=== PATIENT | female | born 1985 | race Caucasian/White ===

== ENCOUNTER 2017-07-27 12:39 | Emergency (ER) | payer OTHER ==
[2017-07-27 12:52] VITALS: BP 111/79; PULSE 98; TEMP 98; BMI 27.8
[2017-07-27] MEDS ORDERED: KETOROLAC TROMETHAMINE 60 MG/2 ML VIAL IM ONE (14:45)
[2017-07-27] MEDS ORDERED: diazePAM 5 MG TABLET PO ONE (14:45)
[2017-07-27] MEDS ORDERED: KETOROLAC TROMETHAMINE 60 MG/2 ML VIAL ONE (14:47)
[2017-07-27] MEDS ORDERED: diazePAM 5 MG TABLET ONE (14:47)
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
== END 2017-07-27 15:29 | disposition home or self-care (01) ==
LOC: JERFT 12:39
PROC: 3E0233Z Introduction of Anti-inflammatory into Muscle, Percutaneous Approach (ICD-10-PCS; principal; 2017-07-27)
DX: M54.5 Low back pain (principal)
CPT/HCPCS: 99281-25

== ENCOUNTER 2017-08-25 18:08 | Emergency (ER) | payer SELFPAY ==
[2017-08-25 18:33] VITALS: TEMP 98.2; BMI 28.6
--- NOTE | 2017-08-25 18:34 | PDOC ---
History of Present Illness - General Chief Complaint: Pain Stated Complaint: BACK/PELVIC PAIN Time Seen by Provider: 08/25/17 18:32 History Source: Patient Exam Limitations: No Limitations - History of Present Illness Travel History: No Initial Comments: 08/25/17 19:02 Patient came to emergency department with approximately 4 days of worsening pain to left low back which is now radiating across to left groin. States has some radiating pain through gluteus and down left leg. Denies any recent changes in exercise or activity, has no history of back pain or injury. Has had no fever, dysuria, bleeding in urine, or history of kidney stones. Hysterectomy performed 10 years ago for endometriosis. Has suffered in the past from ovarian cysts but states this pain is much different from that. Denies constipation and in fact states has been more regular recently that she has been in the past. Some mild nausea but no vomiting. Denies any significant generalized abdominal pain states pain is primarily left lower quadrant into the groin and around from back area taken no medication for relief of same. Timing/Duration: reports: getting worse Quality: reports: mild, moderate, severe Abdominal Pain Onset Location: reports: suprapubic, flank Pain Radiation: reports: flank, groin Activities at Onset: reports: none Alleviating Factors: improves with: None Past History - Travel Traveled outside of the country in the last 30 days: No Close contact w/someone who was outside of country & ill: No - Past Medical History Allergies/Adverse Reactions: Allergies Allergy/AdvReac Type Severity Reaction Status Date / Time shellfish derived Allergy Unknown Verified 08/25/17 18:16 Home Medications: Ambulatory Orders Oxycodone HCl/Acetaminophen [Percocet 5/325 -] 1 tab PO Q4H #14 tablet MDD 6 Prednisone [Deltasone -] 40 mg PO DAILY #10 tablet 08/25/17 Anemia: No Asthma: No Cancer: No Cardiac Disorders: No CVA: No COPD: No CHF: No DVT: No Dementia: No Diabetes: No GI Disorders: No Disorders: No HTN: No Hypercholesterolemia: No Liver Disease: No Seizures: No Thyroid Disease: No - Surgical History Abdominal Surgery: No Appendectomy: No Cardiac Surgery: No Cholecystectomy: No Lung Surgery: No Neurologic Surgery: No Orthopedic Surgery: No - Reproductive History Cervical CA: No Dysfunctional Uterine Bleeding: No Ectopic : No Endometrial CA: No Polycystic Ovaries: Yes Tubal Ligation: No Uterine Fibroids: Yes (removed) - Immunization History Immunization Up to Date: Yes - Suicide/Smoking/Psychosocial Hx Smoking Status: No Smoking History: Never smoked Have you smoked in the past 12 months: No Number of Cigarettes Smoked Daily: 0 Hx Alcohol Use: No Drug/Substance Use Hx: No Substance Use Type: None Hx Substance Use Treatment: No Review of Systems - Review of Systems Able to Perform ROS?: Yes Is the patient limited Sinhala proficient: Yes Constitutional: Yes: Symptoms Reported, See HPI, Loss of Appetite, Malaise. No : Fever HEENTM: Yes: See HPI. No: Symptoms Reported Respiratory: Yes: See HPI. No: Symptoms reported, Cough, Shortness of Breath, Wheezing ABD/GI: Yes: Symptoms Reported, Nausea, Poor Appetite, Poor Fluid Intake. No: Vomiting : Yes: Symptoms Reported, See HPI, Flank Pain. No: Burning, Dysuria, Discharge, Frequency, Hematuria Musculoskeletal: Yes: Symptoms Reported, See HPI, Back Pain Integumentary: No: Symptoms Reported All Other Systems: Reviewed and Negative *Physical Exam - Vital Signs Last Vital Signs Temp Pulse Resp BP Pulse Ox 98.2 F 77 18 131/69 100 08/25/17 18:16 08/25/17 18:16 08/25/17 18:16 08/25/17 18:16 08/25/17 18:16 - Physical Exam General Appearance: Yes: Nourished, Appropriately Dressed, Apparent Distress, Mild Distress, Moderate Distress HEENT: positive: JAYA, Normal ENT Inspection, TMs Normal, Pharynx Normal Neck: positive: Supple. negative: Tender Respiratory/Chest: positive: Lungs Clear, Normal Breath Sounds Cardiovascular: positive: Regular Rhythm Gastrointestinal/Abdominal: positive: Normal Bowel Sounds, Tender (mild suprapubic/ left groin pain, no rebound or guarding, no fullness, no hepatosplenomegaly.), Soft Musculoskeletal: positive: Normal Inspection, CVA Tenderness, CVA Tenderness (L) , Decreased Range of Motion. negative: Muscle Spasm, Vertebral Tenderness Extremity: positive: Normal Capillary Refill, Normal Inspection, Normal Range of Motion (no bone tenderness no spinal tenderness, crepitus or step-offs. 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 We will wait for urinalysis to return to rule out hematuria and order appropriate testing. Labs will be obtained, and given IV fluid bolus with Toradol for pain relief. 7: 00 shift change case was turned over to ANGELINA Cintron for remainder of evaluation and plan *DC/Admit/Observation/Transfer Diagnosis at time of Disposition: Sciatica Back pain Qualifiers: Back pain location: low back pain Chronicity: acute Back pain laterality: left Sciatica presence: unspecified whether sciatica present Qualified Code(s): M54.5 - Low back pain - Discharge Dispostion Disposition: HOME Condition at time of disposition: Stable - Prescriptions Prescriptions: Oxycodone HCl/Acetaminophen [Percocet 5/325 -] 1 tab PO Q4H #14 tablet MDD 6 Prednisone [Deltasone -] 40 mg PO DAILY #10 tablet - Referrals Referrals: Puma Buitrago MD [Staff Physician] - Frankie Garces MD [Primary Care Provider] - - Patient Instructions Printed Discharge Instructions: DI for Back Pain With Sciatica Additional Instructions: Your Discharge Instructions: You must call primary care physician within 24 hours to arrange follow-up. Return to the Emergency Department with any new, persistent or worsening symptoms, for fever, chills, SOB, dizziness or any other concerning changes that may occur. You must make an appointment with orthopedist within the next 1- 2 days. - Post Discharge Activity
[2017-08-25] MEDS ORDERED: KETOROLAC TROMETHAMINE 30 MG/1 ML VIAL ONE (18:55)
[2017-08-25] MEDS ORDERED: SODIUM CHLORIDE 1,000 ML IV STA (19:04)
[2017-08-25] MEDS ORDERED: KETOROLAC TROMETHAMINE 30 MG/1 ML VIAL IVPUSH ONE (19:05)
[2017-08-25 19:19] LABS: BASO # 0.1 # (0.1-1); BASO % 1.1 % (0-2.0); EOS # 0.2 # (0-4.5); EOS % 2.5 % (0-4.5); LYMPH # 2.9 (8-40); MCH 30.2 pg (25.7-33.7); MCHC 33.3 g/dl (32.0-36.0); MEAN CELL VOLUME 90.8 fl (80-96); MEAN PLT VOLUME 9.3 fl (7.5-11.1); MONO # 0.7 # (3.8-10.2); NEUT # 6.1 # (42.8-82.8); NEUT % 60.4 % (42.8-82.8); PLATELET COUNT 256 K/MM3 (134-434); RDW 13.1 % (11.6-15.6); WHITE BLOOD COUNT 10.1 K/mm3 (4.0-10.0)
[2017-08-25 19:45] LABS: ALBUMIN 3.5 g/dl (3.4-5.0); ANION GAP 5 (8-16); BILIRUBIN,TOTAL 0.8 mg/dL (0.2-1.0); CALCIUM 8.1 mg/dL (8.5-10.1); CO2 26 mmol/L (21-32); CREATININE 0.7 mg/dL (0.55-1.02); GLUCOSE,RANDOM 94 mg/dL (74-106); SGOT/AST 9 U/L (15-37); SGPT/ALT 16 U/L (12-78); TOT PROT 6.6 g/dl (6.4-8.2)
[2017-08-25 19:46] LABS: ALK PHOS 73 U/L (45-117)
[2017-08-25] MEDS ORDERED: morphine CARPU-JECT 4 MG/1 ML DISP.SYRIN IVPUSH ONE (20:26)
[2017-08-25] MEDS ORDERED: morphine CARPU-JECT 8 MG/1 ML DISP.SYRIN ONE (20:44)
[2017-08-25 21:51] LABS: URINE APPEARANCE CLEAR; URINE BILIRUBIN NEGATIVE (NEGATIVE); URINE BLOOD NEGATIVE (NEGATIVE); URINE COLOR LTYELLOW; URINE GLUCOSE (UA) NEGATIVE (NEGATIVE); URINE KETONE NEGATIVE (NEGATIVE); URINE LEUK ESTERASE NEGATIVE (NEGATIVE); URINE NITRITE NEGATIVE (NEGATIVE); URINE PROTEIN NEGATIVE (NEGATIVE); URINE UROBILINOGEN NEGATIVE mg/dL (0.2-1.0)
--- NOTE | 2017-08-25 22:06 | PDOC ---
*Physical Exam - Vital Signs Last Vital Signs Temp Pulse Resp BP Pulse Ox 98.2 F 73 17 111/72 100 08/25/17 18:16 08/25/17 19:16 08/25/17 19:16 08/25/17 19:16 08/25/17 19:16 ED Treatment Course - LABORATORY CBC & Chemistry Diagram: 08/25/17 19:00 08/25/17 19:00 - ADDITIONAL ORDERS Additional order review: Laboratory Results 08/25/17 08/25/17 19:00 18:40 Sodium 139 Potassium 4.3 Chloride 108 H Carbon Dioxide 26 Anion Gap 5 L BUN 16 D Creatinine 0.7 D Creat Clearance w eGFR > 60 Random Glucose 94 Calcium 8.1 L Total Bilirubin 0.8 AST 9 L D ALT 16 Alkaline Phosphatase 73 Total Protein 6.6 Albumin 3.5 Lipase 75 Urine Color Ltyellow Urine Appearance Clear Urine pH 6.0 Ur Specific [place] 1.020 Urine Protein Negative Urine Glucose (UA) Negative Urine Ketones Negative Urine Blood Negative Urine Nitrite Negative Urine Bilirubin Negative Urine Urobilinogen Negative Urine HCG, Qual Negative 08/25/17 19:00 RBC 4.27 MCV 90.8 MCHC 33.3 RDW 13.1 MPV 9.3 Neutrophils % 60.4 Lymphocytes % 29.0 Monocytes % 7.0 Eosinophils % 2.5 Basophils % 1.1 - Medications Given in the ED: ED Medications Discontinued Medications Generic Name Dose Route Start Last Admin Trade Name Freq PRN Reason Stop Dose Admin Sodium Chloride 1,000 mls @ 1,000 mls/hr 08/25/17 19:04 08/25/17 19:09 Normal Saline - IV 08/25/17 20:03 1,000 mls/hr ASDIR STA Administration Ketorolac Tromethamine 30 mg 08/25/17 19:05 08/25/17 19:09 Toradol Injection - IVPUSH 08/25/17 19:06 30 mg ONCE ONE Administration Morphine Sulfate 4 mg 08/25/17 20:26 08/25/17 20:52 Morphine Injection - IVPUSH 08/25/17 20:27 4 mg ONCE ONE Administration Medical Decision Making - Medical Decision Making 08/25/17 22:01 Patient was endored to me to follow the labs and disposition. Patient has lower back pain radiating to the groin, buttock and thigh x 4 days, no prior episode of this pain, but took motrin 800mg and flexeril without relief of pain. Patient received toradol in the ED with minimal relief. given morphine 4mg IV. States she has some relief but pain is still 5/10. labs reviewed noted no wbc or rbc on UA ruling out infection and renal stone. Symptoms consistent with siciatia will give prednisone 60mg po, percocet 1 tab po and flexeril 10mg po will discharge with f/u in Ortho. I discussed the physical exam findings, ancillary test results and final diagnoses with the patient. I answered all of the patient's questions. The patient was satisfied with the care received and felt comfortable with the discharge plan and treatment plan. The Patient agrees to follow up with the primary care physician within 24-72 hours. *DC/Admit/Observation/Transfer Diagnosis at time of Disposition: Back pain Qualifiers: Back pain location: low back pain Chronicity: acute Back pain laterality: left Sciatica presence: unspecified whether sciatica present Qualified Code(s): M54.5 - Low back pain Sciatica Qualifiers: Laterality: left Qualified Code(s): M54.32 - Sciatica, left side - Discharge Dispostion Disposition: HOME Condition at time of disposition: Stable - Referrals Referrals: Frankie Garces MD [Primary Care Provider] - Puma Buitrago MD [Staff Physician] - - Patient Instructions Printed Discharge Instructions: DI for Back Pain With Sciatica Additional Instructions: Your Discharge Instructions: You must call primary care physician within 24 hours to arrange follow-up. Return to the Emergency Department with any new, persistent or worsening symptoms, for fever, chills, SOB, dizziness or any other concerning changes that may occur. You must make an appointment with orthopedist within the next 1- 2 days. - Post Discharge Activity
[2017-08-25] MEDS ORDERED: CYCLOBENZAPRINE HCL 10 MG TABLET (FP) PO ONE (22:14)
[2017-08-25] MEDS ORDERED: predniSONE 20 MG TABLET (UD) ONE (22:40)
[2017-08-25] MEDS ORDERED: CYCLOBENZAPRINE HCL 10 MG TABLET (FP) ONE (22:40)
[2017-08-25 22:48] VITALS: BP 108/56; PULSE 76
[2017-08-25] MEDS ORDERED: predniSONE 20 MG TABLET (UD) PO ONE (22:57)
[2017-08-26] MEDS ORDERED: predniSONE 20 MG TABLET (UD) PO SCH (10:00)
[2017-08-26 10:08] LABS: URINE LEUK ESTERASE Negative (NEGATIVE)
[2017-08-26] MEDS ORDERED: predniSONE 20 MG TABLET (UD) PO ONE (22:48)
== END 2017-08-25 22:37 | disposition home or self-care (01) ==
LOC: JER 18:08
PROC: 3E0337Z Introduction of Electrolytic and Water Balance Substance into Peripheral Vein, Percutaneous Approach (ICD-10-PCS; principal; 2017-08-25)
PROC: 3E0333Z Introduction of Anti-inflammatory into Peripheral Vein, Percutaneous Approach (ICD-10-PCS; 2017-08-25)
PROC: 3E033NZ Introduction of Analgesics, Hypnotics, Sedatives into Peripheral Vein, Percutaneous Approach (ICD-10-PCS; 2017-08-25)
DX: M54.30 Sciatica, unspecified side (principal)
CPT/HCPCS: 36415; 80053; 81003; 83690; 84703; 85025; 99283-25

== ENCOUNTER 2017-09-03 19:47 | Emergency (ER) | payer SELFPAY ==
--- NOTE | 2017-09-03 20:32 | PDOC ---
Rapid Medical Evaluation Time Seen by Provider: 09/03/17 20:27 Medical Evaluation: Allergies Allergy/AdvReac Type Severity Reaction Status Date / Time shellfish derived Allergy Unknown Verified 08/25/17 18:16 I have performed a brief in-person evaluation of this patient. The patient presents with a chief complaint of: left lower abdominal pain x 2 days Pertinent physical exam findings: LLQ, left pelvic pain with palpation. Discomfort with fist percussion to left CVA. No flank pain. I have ordered the following: hcg/UA/urine culture, basic labs The patient will proceed to the ED for further evaluation.
[2017-09-03 20:37] VITALS: BP 111/71; PULSE 90; TEMP 97.4; BMI 27.8
[2017-09-03 20:42] LABS: EOS % 1.8 % (0-4.5); HEMATOCRIT 40.1 % (32.4-45.2); HEMOGLOBIN 13.2 GM/dL (10.7-15.3); LYMPH % 29.3 % (8-40); MCH 29.7 pg (25.7-33.7); MEAN CELL VOLUME 90.2 fl (80-96); MONO % 6.6 % (3.8-10.2); NEUT % 61.3 % (42.8-82.8); PLATELET COUNT 338 K/MM3 (134-434); RBC 4.45 M/mm3 (3.60-5.2); RDW 12.9 % (11.6-15.6); WHITE BLOOD COUNT 11.7 K/mm3 (4.0-10.0)
[2017-09-03 21:35] LABS: ANION GAP 7 (8-16); BILIRUBIN,TOTAL 0.8 mg/dL (0.2-1.0); BLOOD UREA NITROGEN 15 mg/dL (7-18); CALCIUM 8.4 mg/dL (8.5-10.1); CHLORIDE 105 mmol/L (98-107); CO2 28 mmol/L (21-32); CREATININE 0.7 mg/dL (0.55-1.02); GLUCOSE,RANDOM 90 mg/dL (74-106); POTASSIUM 3.9 mmol/L (3.5-5.1); SGOT/AST 10 U/L (15-37); SGPT/ALT 21 U/L (12-78); SODIUM 140 mmol/L (136-145); TOT PROT 7.3 g/dl (6.4-8.2)
[2017-09-03 21:36] LABS: HCG,QUALITATIVE URINE NEGATIVE
[2017-09-03 21:36] LABS: ALK PHOS 91 U/L (45-117)
[2017-09-03 21:38] LABS: URINE APPEARANCE CLEAR; URINE BILIRUBIN NEGATIVE (NEGATIVE); URINE BLOOD NEGATIVE (NEGATIVE); URINE COLOR YELLOW; URINE GLUCOSE (UA) NEGATIVE (NEGATIVE); URINE KETONE NEGATIVE (NEGATIVE); URINE LEUK ESTERASE NEGATIVE (NEGATIVE); URINE NITRITE NEGATIVE (NEGATIVE); URINE PROTEIN NEGATIVE (NEGATIVE); URINE UROBILINOGEN NEGATIVE mg/dL (0.2-1.0)
--- NOTE | 2017-09-03 22:42 | PDOC ---
Attending Attestation - HPI HPI: 09/03/17 22:46 The patient is a 32 year old female, with a significant past medical history of ovarian cysts and endometriosis s/p hysterectomy (2009), who presents to the emergency department with intermittent left lower abdominal pain for 3 weeks. She states the pain was more intense this morning. She states the pain radiates from her left lower abdomen to her left left back. She reports Motrin had been helping her pain, however, reportedly took 800 mg of Motrin today without relief. She denies chest pain, shortness of breath, headache and dizziness. She denies fever, chills, nausea, vomit, diarrhea and constipation. She denies dysuria, frequency, urgency and hematuria. Allergies: NKDA 09/03/17 22:46 Documentation prepared by Ny Alba, acting as medical territory manager for Deshaun Haq DO <Ny Alba - Last Filed: 09/03/17 22:46> - Resident Resident Name: ClintRicardo - Physicial Exam PE: 09/03/17 23:06 *Physical Exam General Appearance: Yes: Appropriately Dressed. No: Apparent Distress, Intoxicated HEENT: positive: EOMI, JAYA, Normal ENT Inspection, Normal Voice, TMs Normal, Pharynx Normal. negative: Pale Conjunctivae, Photophobia, Scleral Icterus (R), Scleral Icterus (L) Neck: positive: Trachea midline, Normal Thyroid, Supple. negative: Tender, Rigid, Carotid bruit, Stridor, Lymphadenopathy (R), Lymphadenopathy (L), Thyromegaly Respiratory/Chest: positive: Lungs Clear, Normal Breath Sounds. negative: Chest Tender, Respiratory Distress, Accessory Muscle Use, Labored Respiration, RES, Crackles, Rales, Rhonchi, Stridor, Wheezing, Dullness Cardiovascular: positive: Regular Rhythm, Regular Rate, S1, S2. negative: Edema , JVD, Murmur, Bradycardia, Tachycardia Vascular Pulses: Dorsalis-Pedis (R): 2+, Doralis-Pedis (L): 2+ Gastrointestinal/Abdominal: positive: Normal Bowel Sounds, Flat, Soft. negative : Tender, Organomegaly, Pulsatile Mass, Increased Bowel Sounds, Decreased BS, Distended, Guarding, Rebound, Hernia, Hepatomegaly, Spleenomegaly Lymphatic: negative: Adenopathy, Tenderness Musculoskeletal: positive: Normal Inspection. negative: CVA Tenderness, Decreased Range of Motion Extremity: positive: Normal Capillary Refill, Normal Inspection, Normal Range of Motion, Pelvis Stable. negative: Tender, Pedal Edema, Swelling, Erythema Integumentary: positive: Normal Color, Dry, Warm. 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 negative: EOM Palsy, Facial Droop, Sensory Deficit - Medical Decision Making 09/03/17 23:58 Pt signed against medical advice because she no longer wants to wait and she didn't receive any pain medication. Pt refused Toradol. <Deshaun Haq - Last Filed: 09/04/17 00:00>
--- NOTE | 2017-09-03 22:50 | PDOC ---
History of Present Illness - General Chief Complaint: Pain, Acute Stated Complaint: PAIN Time Seen by Provider: 09/03/17 20:27 History Source: Patient Exam Limitations: No Limitations - History of Present Illness Initial Comments: 09/03/17 22:47 32f With pmh of repeated pelvic pain and hysterectomy for endometriosis presents with LLQ pain for the past 3 weeks exacerbated today. She took 800mg of Motrin this morning which didn't work. Past History - Past Medical History Allergies/Adverse Reactions: Allergies Allergy/AdvReac Type Severity Reaction Status Date / Time shellfish derived Allergy Unknown Verified 08/25/17 18:16 Home Medications: Ambulatory Orders Oxycodone HCl/Acetaminophen [Percocet 5/325 -] 1 tab PO Q4H #14 tablet MDD 6 Prednisone [Deltasone -] 40 mg PO DAILY #10 tablet 08/25/17 Anemia: No Asthma: No Cancer: No Cardiac Disorders: No CVA: No COPD: No CHF: No DVT: No Dementia: No Diabetes: No GI Disorders: No Disorders: No HTN: No Hypercholesterolemia: No Liver Disease: No Seizures: No Thyroid Disease: No - Surgical History Abdominal Surgery: No Appendectomy: No Cardiac Surgery: No Cholecystectomy: No Lung Surgery: No Neurologic Surgery: No Orthopedic Surgery: No - Reproductive History Cervical CA: No Dysfunctional Uterine Bleeding: No Ectopic : No Endometrial CA: No Polycystic Ovaries: Yes Therapeutic (s) & number: No Tubal Ligation: No Uterine Fibroids: Yes (removed) - Immunization History Immunization Up to Date: Yes - Suicide/Smoking/Psychosocial Hx Smoking Status: No Smoking History: Never smoked Have you smoked in the past 12 months: No Number of Cigarettes Smoked Daily: 0 Information on smoking cessation initiated: No Hx Alcohol Use: No Drug/Substance Use Hx: No Substance Use Type: None Hx Substance Use Treatment: No Review of Systems - Review of Systems Able to Perform ROS?: Yes Constitutional: No: Symptoms Reported HEENTM: No: Symptoms Reported Respiratory: No: Symptoms reported Cardiac (ROS): No: Symptoms Reported ABD/GI: Yes: See HPI : No: Symptoms Reported Musculoskeletal: No: Symptoms Reported Integumentary: No: Symptoms Reported Neurological: No: Symptoms reported *Physical Exam - Vital Signs Last Vital Signs Temp Pulse Resp BP Pulse Ox 97.4 F L 90 20 111/71 97 09/03/17 20:31 09/03/17 20:31 09/03/17 20:31 09/03/17 20:31 09/03/17 20:31 - Physical Exam General Appearance: Yes: Nourished, Appropriately Dressed, Apparent Distress HEENT: positive: EOMI, JAYA, Normal ENT Inspection Neck: negative: Tender Respiratory/Chest: positive: Lungs Clear, Normal Breath Sounds. negative: Chest Tender Cardiovascular: positive: Regular Rhythm, Regular Rate, S1, S2 Gastrointestinal/Abdominal: positive: Normal Bowel Sounds, Tender (LRQ), Flat, Soft Musculoskeletal: positive: Normal Inspection, Other (lower left back pain) Integumentary: positive: Normal Color, Dry, Warm Neurologic: positive: Fully Oriented, Alert, Normal Response, Depressed Affect ED Treatment Course - LABORATORY CBC & Chemistry Diagram: 09/03/17 20:37 09/03/17 20:37 - ADDITIONAL ORDERS Additional order review: Laboratory Results 09/03/17 09/03/17 09/03/17 20:37 20:37 20:33 WBC 11.7 H RBC 4.45 Hgb 13.2 Hct 40.1 MCV 90.2 MCH 29.7 MCHC 33.0 RDW 12.9 Plt Count 338 D MPV 9.0 Neutrophils % 61.3 Lymphocytes % 29.3 Monocytes % 6.6 Eosinophils % 1.8 Basophils % 1.0 Sodium 140 Potassium 3.9 Chloride 105 Carbon Dioxide 28 Anion Gap 7 L BUN 15 Creatinine 0.7 Creat Clearance w eGFR > 60 Random Glucose 90 Calcium 8.4 L Total Bilirubin 0.8 AST 10 L ALT 21 D Alkaline Phosphatase 91 D Total Protein 7.3 Albumin 4.0 Urine Color Yellow Urine Appearance Clear Urine pH 5.0 Ur Specific [place] 1.025 Urine Protein Negative Urine Glucose (UA) Negative Urine Ketones Negative Urine Blood Negative Urine Nitrite Negative Urine Bilirubin Negative Urine Urobilinogen Negative Urine HCG, Qual Negative 09/03/17 20:37 RBC 4.45 MCV 90.2 MCHC 33.0 RDW 12.9 MPV 9.0 Neutrophils % 61.3 Lymphocytes % 29.3 Monocytes % 6.6 Eosinophils % 1.8 Basophils % 1.0 - RADIOLOGY Radiology Studies Ordered: Category Date Time Status SPIRAL- RENAL-STONE CT [CT] Stat CT Scan 09/03/17 22:45 Ordered Medical Decision Making - Medical Decision Making 09/04/17 00:03 32F with h/o of pelvic pain presenting with pelvic pain. not . Labs WNL Spiral Ct pending. Refused Tordol because "it doesn't work". Desires to leave AMA Was advised to seek treatment with pain management provider outside ER. *DC/Admit/Observation/Transfer Diagnosis at time of Disposition: Pelvic pain - Discharge Dispostion Disposition: AGAINST MEDICAL ADVICE Condition at time of disposition: Unchanged/Unknown - Referrals Referrals: Frankie Garces MD [Primary Care Provider] - - Patient Instructions - Post Discharge Activity
[2017-09-03] MEDS ORDERED: KETOROLAC TROMETHAMINE 15 MG/ML VIAL IVPUSH ONE (23:14)
[2017-09-03] MEDS ORDERED: KETOROLAC TROMETHAMINE 30 MG/1 ML VIAL ONE (23:50)
== END 2017-09-04 00:10 | disposition left against medical advice (07) ==
LOC: JER 19:47
DX: R10.2 Pelvic and perineal pain (principal)
CPT/HCPCS: 36415; 80053; 81003; 84703; 85025; 87086; 99281-25

== ENCOUNTER 2018-03-12 23:05 | Emergency (ER) | payer SELFPAY ==
[2018-03-12 23:11] VITALS: BMI 27.8
--- NOTE | 2018-03-12 23:28 | PDOC ---
History of Present Illness - General Chief Complaint: Bone Injury Stated Complaint: ANKLE INJURY Time Seen by Provider: 03/12/18 23:26 History Source: Patient - History of Present Illness Initial Comments: 03/13/18 00:50 32-year-old female complaining of right ankle pain and swelling and left knee pain. Patient reports that she fel tripped and fell down the stairs and landed on left knee and twisted her right ankle. Patient with severe right ankle pain and swelling. Denies head injury, loss of consciousness, syncope, nausea, vomiting, diarrhea Past History - Travel Traveled outside of the country in the last 30 days: Yes Close contact w/someone who was outside of country & ill: No - Past Medical History Allergies/Adverse Reactions: Allergies Allergy/AdvReac Type Severity Reaction Status Date / Time shellfish derived Allergy Unknown Verified 03/12/18 23:12 Home Medications: Ambulatory Orders Ibuprofen [Ibu] 600 mg PO QID PRN #20 tablet 03/13/18 Oxycodone HCl/Acetaminophen [Percocet 5-325 mg Tablet] 1 - 2 tab PO Q6H PRN #10 tab MDD 4 03/13/18 Anemia: No Asthma: No Cancer: No Cardiac Disorders: No CVA: No COPD: No CHF: No DVT: No Dementia: No Diabetes: No GI Disorders: No Disorders: No HTN: No Hypercholesterolemia: No Liver Disease: No Seizures: No Thyroid Disease: No - Surgical History Abdominal Surgery: No Appendectomy: No Cardiac Surgery: No Cholecystectomy: No Lung Surgery: No Neurologic Surgery: No Orthopedic Surgery: No - Reproductive History Cervical CA: No Dysfunctional Uterine Bleeding: No Ectopic : No Endometrial CA: No Polycystic Ovaries: Yes Therapeutic (s) & number: No Tubal Ligation: No Uterine Fibroids: Yes (removed) - Immunization History Immunization Up to Date: Yes - Suicide/Smoking/Psychosocial Hx Smoking Status: No Smoking History: Never smoked Have you smoked in the past 12 months: No Number of Cigarettes Smoked Daily: 0 Information on smoking cessation initiated: No Hx Alcohol Use: No Drug/Substance Use Hx: No Substance Use Type: None Hx Substance Use Treatment: No Review of Systems - Review of Systems Able to Perform ROS?: Yes Is the patient limited Spanish proficient: No Constitutional: No: Symptoms Reported, See HPI, Chills, Diaphoresis, Fever, Loss of Appetite, Malaise, Night Sweats, Weakness, Weight Stable, Unintentional Wgt. Loss, Unexplained wgt Loss, Other Cardiac (ROS): No: Symptoms Reported, See HPI, Chest Pain, Edema, Irregular Heart Rate, Lightheadedness, Palpitations, Syncope, Chest Tightness, Other Musculoskeletal: Yes: Joint Swelling (right ankle) *Physical Exam - Vital Signs Last Vital Signs Temp Pulse Resp BP Pulse Ox 98.4 F 84 17 125/98 100 03/12/18 23:09 03/12/18 23:09 03/12/18 23:09 03/12/18 23:09 03/12/18 23:09 - Physical Exam General Appearance: Yes: Appropriately Dressed Musculoskeletal: positive: Other (left knee pain with rom. able to weight bear) Extremity: positive: Other (rigth ankle + edema limited rom) Integumentary: positive: Normal Color, Dry, Warm Neurologic: positive: Fully Oriented, Alert, Normal Mood/Affect Medical Decision Making - Medical Decision Making 03/13/18 01:40 xray: There is no fracture, dislocation, bony lesion or soft tissue mass. Tibial plafond and talar dome are in good alignment. Overlying soft tissues are unremarkable. No foreign body identified.1 *DC/Admit/Observation/Transfer Diagnosis at time of Disposition: Right ankle sprain Qualifiers: Encounter type: initial encounter Involved ligament of ankle: unspecified ligament Qualified Code(s): S93.401A - Sprain of unspecified ligament of right ankle, initial encounter Knee pain, left Qualifiers: Chronicity: acute Qualified Code(s): M25.562 - Pain in left knee - Discharge Dispostion Disposition: HOME - Prescriptions Prescriptions: Ibuprofen [Ibu] 600 mg PO QID PRN #20 tablet PRN Reason: Mild Pain Oxycodone HCl/Acetaminophen [Percocet 5-325 mg Tablet] 1 - 2 tab PO Q6H PRN #10 tab MDD 4 PRN Reason: Moderate Pain - Referrals Referrals: Frankie Garces MD [Primary Care Provider] - Call tomorrow Vel Ford MD [Staff Physician] - Call tomorrow - Patient Instructions Printed Discharge Instructions: Ankle Sprain Additional Instructions: rest Ice, elevate and keep splint on. follow up with an orthopedic as soon as possible. take ibuprofen every 6 hours as needed - Post Discharge Activity
[2018-03-12] MEDS ORDERED: KETOROLAC TROMETHAMINE 30 MG/1 ML VIAL IM ONE (23:30)
[2018-03-12] MEDS ORDERED: KETOROLAC TROMETHAMINE 30 MG/1 ML VIAL ONE (23:37)
[2018-03-13] MEDS ORDERED: morphine CARPU-JECT 2 MG/1 ML DISP.SYRIN SQ ONE ×2 (00:16→00:17)
[2018-03-13] MEDS ORDERED: morphine SULFATE 4 MG/ML VIAL ONE (00:18)
[2018-03-13 01:59] VITALS: BP 119/68; PULSE 76; TEMP 98.2
== END 2018-03-13 02:14 | disposition home or self-care (01) ==
LOC: JER 23:05
DX: S93.401A Sprain of unspecified ligament of right ankle, initial encounter (principal); M25.562 Pain in left knee; W10.8XXA Fall (on) (from) other stairs and steps, initial encounter; Y93.89 Activity, other specified; Y92.89 Other specified places as the place of occurrence of the external cause; Y99.8 Other external cause status
CPT/HCPCS: 73562-TC-LT-FY; 73610-TC-RT-FY; 73630-TC-RT-FY; 99282-25

== ENCOUNTER 2018-08-22 18:57 | Emergency (ER) | payer SELFPAY ==
[2018-08-22 19:02] VITALS: BP 115/57; PULSE 93; TEMP 98.3; BMI 28.0
[2018-08-22] MEDS ORDERED: IBUPROFEN 600 MG TABLET (FP) PO ONE ×2 (19:26→19:28)
--- NOTE | 2018-08-22 19:39 | PDOC ---
History of Present Illness - General Chief Complaint: Ear Problem Stated Complaint: EARACHE AND THROAT PAIN Time Seen by Provider: 08/22/18 19:05 History Source: Patient Exam Limitations: No Limitations - History of Present Illness Initial Comments: 08/22/18 19:41 33-year-old female presents to the emergency room complaining of right ear pain and sore throat and chills for the past 2-3 days. Patient states took Motrin with moderate effect. Timing/Duration: other Severity: mild Associated Symptoms: reports: fever/chills, other (ear pain) Past History - Travel Traveled outside of the country in the last 30 days: No Close contact w/someone who was outside of country & ill: No - Past Medical History Allergies/Adverse Reactions: Allergies Allergy/AdvReac Type Severity Reaction Status Date / Time shellfish derived Allergy Unknown Verified 08/22/18 19:03 Home Medications: Ambulatory Orders Amoxicillin - [Amoxicillin 500mg Capsule -] 500 mg PO BID #14 capsule 08/22/18 Anemia: No Asthma: No Cancer: No Cardiac Disorders: No CVA: No COPD: No CHF: No DVT: No Dementia: No Diabetes: No GI Disorders: No Disorders: No HTN: No Hypercholesterolemia: No Liver Disease: No Seizures: No Thyroid Disease: No - Surgical History Abdominal Surgery: No Appendectomy: No Cardiac Surgery: No Cholecystectomy: No Lung Surgery: No Neurologic Surgery: No Orthopedic Surgery: No - Reproductive History Cervical CA: No Dysfunctional Uterine Bleeding: No Ectopic : No Endometrial CA: No Polycystic Ovaries: Yes Therapeutic (s) & number: No Tubal Ligation: No Uterine Fibroids: Yes (removed) - Immunization History Immunization Up to Date: Yes - Suicide/Smoking/Psychosocial Hx Smoking Status: No Smoking History: Never smoked Have you smoked in the past 12 months: No Number of Cigarettes Smoked Daily: 0 Hx Alcohol Use: No Drug/Substance Use Hx: No Substance Use Type: None Hx Substance Use Treatment: No Patient Lives Alone: No Lives with/in: spouse/SO Review of Systems - Review of Systems Able to Perform ROS?: Yes Constitutional: Yes: Chills HEENTM: Yes: Ear Pain, Throat Pain Respiratory: No: Symptoms reported Cardiac (ROS): No: Symptoms Reported ABD/GI: No: Symptoms Reported Musculoskeletal: No: Symptoms Reported Integumentary: No: Symptoms Reported Neurological: No: Symptoms reported *Physical Exam - Vital Signs Last Vital Signs Temp Pulse Resp BP Pulse Ox 98.3 F 93 H 18 115/57 L 100 08/22/18 19:00 08/22/18 19:00 08/22/18 19:00 08/22/18 19:00 08/22/18 19:00 - Physical Exam General Appearance: Yes: Nourished, Appropriately Dressed. No: Apparent Distress HEENT: positive: Pharynx Normal, TM Erythema (right). negative: Pale Conjunctivae Neck: negative: Lymphadenopathy (R), Lymphadenopathy (L) Respiratory/Chest: positive: Lungs Clear, Normal Breath Sounds. negative: Respiratory Distress, Accessory Muscle Use Cardiovascular: positive: Regular Rhythm, Regular Rate. negative: Murmur Gastrointestinal/Abdominal: positive: Soft. negative: Tenderness Integumentary: positive: Normal Color, Warm, Moist Neurologic: positive: Motor Strength 5/5 (ambulatory) Moderate Sedation - Procedure Monitoring Vital Signs: Procedure Monitoring Vital Signs Temperature 98.3 F 08/22/18 19:00 Pulse Rate 93 H 08/22/18 19:00 Respiratory Rate 18 08/22/18 19:00 Blood Pressure 115/57 L 08/22/18 19:00 O2 Sat by Pulse Oximetry (%) 100 08/22/18 19:00 Medical Decision Making - Medical Decision Making 08/22/18 19:42 Chief complaint: right ear pain and throat pain Exam: Right otitis media Plan: Motrin and discharge home with amoxicillin *DC/Admit/Observation/Transfer Diagnosis at time of Disposition: Right otitis media - Discharge Dispostion Disposition: HOME Condition at time of disposition: Good - Prescriptions Prescriptions: Amoxicillin - [Amoxicillin 500mg Capsule -] 500 mg PO BID #14 capsule - Referrals Referrals: Frankie Garces MD [Primary Care Provider] - - Patient Instructions Printed Discharge Instructions: Middle Ear Infection Additional Instructions: Please take amoxicillin as prescribed until completed. Avoid placing anything in your ear and keep your ear dry. May take Motrin for discomfort - Post Discharge Activity
== END 2018-08-22 19:48 | disposition home or self-care (01) ==
LOC: JERFT 18:57
CPT/HCPCS: 99281-25

== ENCOUNTER 2018-08-25 17:04 | Emergency (ER) | payer SELFPAY ==
[2018-08-25 17:09] VITALS: BP 111/65; PULSE 81; TEMP 97.8; BMI 28.0
--- NOTE | 2018-08-25 17:51 | PDOC ---
History of Present Illness - General Chief Complaint: Ear Problem Stated Complaint: COLD SYMPTOMS Time Seen by Provider: 08/25/18 17:22 History Source: Patient, Old Records Exam Limitations: No Limitations - History of Present Illness Initial Comments: 08/25/18 18:45 33 yo F w/ no sig PMHx, recently diagnosed with an AOM 3 days ago, comes in saying that she is not feeling better, she feels really clogged up in her ears and nose, very congested, feels a lot of pressure in her face upon leaning forward, also has a sore throat worse in the mornings. NO other complaints today , no fever/chills, no NVD, no abdominal pain, no rash, no neck pain/stiffness, no chest pain, no chest tightness, no decrease in PO intake, no decrease in urination, no known sick contacts, no recent travel. Pt is currently taking amoxicillin, motrin, dayquil, without relief of her pain Past History - Past Medical History Allergies/Adverse Reactions: Allergies Allergy/AdvReac Type Severity Reaction Status Date / Time shellfish derived Allergy Unknown Verified 08/25/18 17:09 Home Medications: Ambulatory Orders Amoxicillin - [Amoxicillin 500mg Capsule -] 500 mg PO BID #14 capsule 08/22/18 Cetirizine HCl [Zyrtec -] 10 mg PO DAILY #30 tablet 08/25/18 Fluticasone Prop 0.05% Nasal [Flonase -] 1 - 2 spray NS DAILY #1 spray.pump Pseudoephedrine HCl [Sudafed] 60 mg PO Q6H PRN 3 Days #20 tablet 08/25/18 Sodium Chloride [Saline Mist] 44 ml NS PRN PRN 4 Days #1 bottle 08/25/18 Anemia: No Asthma: No Cancer: No Cardiac Disorders: No CVA: No COPD: No CHF: No DVT: No Dementia: No Diabetes: No GI Disorders: No Disorders: No HTN: No Hypercholesterolemia: No Liver Disease: No Seizures: No Thyroid Disease: No - Surgical History Abdominal Surgery: No Appendectomy: No Cardiac Surgery: No Cholecystectomy: No Lung Surgery: No Neurologic Surgery: No Orthopedic Surgery: No - Reproductive History Cervical CA: No Dysfunctional Uterine Bleeding: No Ectopic : No Endometrial CA: No Polycystic Ovaries: Yes Therapeutic (s) & number: No Tubal Ligation: No Uterine Fibroids: Yes (removed) - Immunization History Immunization Up to Date: Yes - Suicide/Smoking/Psychosocial Hx Smoking Status: No Smoking History: Never smoked Have you smoked in the past 12 months: No Number of Cigarettes Smoked Daily: 0 Information on smoking cessation initiated: No Hx Alcohol Use: No Drug/Substance Use Hx: No Substance Use Type: None Hx Substance Use Treatment: No Review of Systems - Review of Systems Able to Perform ROS?: Yes Constitutional: No: Chills, Fever, Malaise, Night Sweats HEENTM: Yes: Throat Pain. No: Eye Pain, Recent change in vision Respiratory: No: Shortness of Breath Cardiac (ROS): No: Chest Pain, Palpitations, Chest Tightness ABD/GI: No: Diarrhea, Nausea, Vomiting, Abdominal cramping : No: Dysuria, Hematuria Musculoskeletal: No: Back Pain Integumentary: No: Rash Neurological: No: Headache, Numbness, Dizziness Psychiatric: No: Change in Appetite Endocrine: No: Unexplained Weight Loss *Physical Exam - Vital Signs Last Vital Signs Temp Pulse Resp BP Pulse Ox 97.8 F 81 16 111/65 100 08/25/18 17:06 08/25/18 17:06 08/25/18 17:06 08/25/18 17:06 08/25/18 17:06 - Physical Exam General Appearance: Yes: Nourished. No: Apparent Distress HEENT: positive: JAYA, Normal Voice, Pharyngeal Erythema ( mild), Nasal Congestion, Rhinorrhea, Other (No mastoid erythema/swelling/tenderness). negative: Pale Conjunctivae, Scleral Icterus (R), Scleral Icterus (L), Tonsillar Exudate, Tonsillar Erythema, TM Bulging, TM Dull, TM Erythema ((+) clear effusion behind R TM.) Neck: positive: Supple, Lymphadenopathy (R) ( tonsillar), Lymphadenopathy (L) ( tonsillar). negative: Decreased range of motion, Tender midline Respiratory/Chest: positive: Lungs Clear, Normal Breath Sounds. negative: Respiratory Distress, Accessory Muscle Use Cardiovascular: positive: Regular Rhythm, Regular Rate Gastrointestinal/Abdominal: positive: Tender Musculoskeletal: positive: Normal Inspection. negative: CVA Tenderness, Decreased Range of Motion Extremity: positive: Normal Capillary Refill, Normal Inspection, Normal Range of Motion. negative: Tender, Pedal Edema Integumentary: positive: Normal Color, Dry. negative: Jaundice, Rash Neurologic: positive: Fully Oriented, Alert, Normal Mood/Affect Moderate Sedation - Procedure Monitoring Vital Signs: Procedure Monitoring Vital Signs Temperature 97.8 F 08/25/18 17:06 Pulse Rate 81 08/25/18 17:06 Respiratory Rate 16 08/25/18 17:06 Blood Pressure 111/65 08/25/18 17:06 O2 Sat by Pulse Oximetry (%) 100 08/25/18 17:06 Medical Decision Making - Medical Decision Making 08/25/18 18:52 33 yo F with nasal congestion, post nasal drip, ear pain. WIll add sudafed, motrin, tylenol, zyrtec, flonase to her amoxicillin that she was prescribed 3 days ago. WIll also give saline spray WIll recommend Rest, drinking lot of fluids. PMD follow up ENT follow up if symptoms worsen Return for worsening/concerning symptoms Pt verbalizes understanding and agrees with plan *DC/Admit/Observation/Transfer Diagnosis at time of Disposition: Ear pain, right, Congestion of right ear, PND (post-nasal drip) - Discharge Dispostion Disposition: HOME Condition at time of disposition: Stable Decision to Admit order: No - Prescriptions Prescriptions: Cetirizine HCl [Zyrtec -] 10 mg PO DAILY #30 tablet Fluticasone Prop 0.05% Nasal [Flonase -] 1 - 2 spray NS DAILY #1 spray.pump Pseudoephedrine HCl [Sudafed] 60 mg PO Q6H PRN 3 Days #20 tablet PRN Reason: Nasal Congestion Sodium Chloride [Saline Mist] 44 ml NS PRN PRN 4 Days #1 bottle PRN Reason: Nasal Congestion - Referrals Referrals: Frankie Garces MD [Primary Care Provider] - Ty Baca MD [Staff Physician] - - Patient Instructions - Post Discharge Activity
[2018-08-25] MEDS ORDERED: PSEUDOEPHEDRINE HCL 60 MG TABLET PO ONE (18:01)
[2018-08-25] MEDS ORDERED: PSEUDOEPHEDRINE HCL 60 MG TABLET ONE (18:06)
== END 2018-08-25 18:09 | disposition home or self-care (01) ==
LOC: JERFT 17:04
DX: H66.91 Otitis media, unspecified, right ear (principal)
CPT/HCPCS: 99281-25

== ENCOUNTER 2019-03-30 17:51 | Emergency (ER) | payer OTHER ==
[2019-03-30 17:56] VITALS: BP 118/73; PULSE 83; TEMP 98.2; BMI 28.8
[2019-03-30] MEDS ORDERED: KETOROLAC TROMETHAMINE 60 MG/2 ML VIAL IM ONE (18:33)
[2019-03-30] MEDS ORDERED: LIDOCAINE 5% TOPICAL PATCH TP ONE (18:33)
[2019-03-30] MEDS ORDERED: diazePAM 5 MG TABLET PO ONE (18:33)
[2019-03-30] MEDS ORDERED: LIDOCAINE 5% TOPICAL PATCH ONE (18:42)
[2019-03-30] MEDS ORDERED: KETOROLAC TROMETHAMINE 60 MG/2 ML VIAL ONE (18:42)
[2019-03-30] MEDS ORDERED: diazePAM 5 MG TABLET ONE (18:43)
--- NOTE | 2019-03-30 19:18 | PDOC ---
History of Present Illness - General Chief Complaint: Back Pain Stated Complaint: PIAN/NAUSEA Time Seen by Provider: 03/30/19 18:14 History Source: Patient Exam Limitations: No Limitations Past History - Past Medical History Allergies/Adverse Reactions: Allergies Allergy/AdvReac Type Severity Reaction Status Date / Time shellfish derived Allergy Unknown Verified 03/30/19 17:53 Home Medications: Ambulatory Orders Amoxicillin - [Amoxicillin 500mg Capsule -] 500 mg PO BID #14 capsule 08/22/18 Cetirizine HCl [Zyrtec -] 10 mg PO DAILY #30 tablet 08/25/18 Fluticasone Prop 0.05% Nasal [Flonase -] 1 - 2 spray NS DAILY #1 spray.pump Pseudoephedrine HCl [Sudafed] 60 mg PO Q6H PRN 3 Days #20 tablet 08/25/18 Sodium Chloride [Saline Mist] 44 ml NS PRN PRN 4 Days #1 bottle 08/25/18 Diazepam [Valium] 5 mg PO Q8H PRN #15 tablet MDD 3 03/30/19 Lidocaine 5% Patch [Lidoderm -] 1 patch TP DAILY #7 patch 03/30/19 Anemia: No Asthma: No Cancer: No Cardiac Disorders: No CVA: No COPD: No CHF: No DVT: No Dementia: No Diabetes: No GI Disorders: No Disorders: No HTN: No Hypercholesterolemia: No Liver Disease: No Seizures: No Thyroid Disease: No - Surgical History Abdominal Surgery: No Appendectomy: No Cardiac Surgery: No Cholecystectomy: No Lung Surgery: No Neurologic Surgery: No Orthopedic Surgery: No - Reproductive History Cervical CA: No Dysfunctional Uterine Bleeding: No Ectopic : No Endometrial CA: No Polycystic Ovaries: Yes Therapeutic (s) & number: No Tubal Ligation: No Uterine Fibroids: Yes (removed) - Immunization History Immunization Up to Date: Yes - Suicide/Smoking/Psychosocial Hx Smoking Status: No Smoking History: Never smoked Have you smoked in the past 12 months: No Number of Cigarettes Smoked Daily: 0 Hx Alcohol Use: No Drug/Substance Use Hx: No Substance Use Type: None Hx Substance Use Treatment: No *Physical Exam - Vital Signs Last Vital Signs Temp Pulse Resp BP Pulse Ox 98.2 F 83 18 118/73 100 03/30/19 17:53 03/30/19 17:53 03/30/19 17:53 03/30/19 17:53 03/30/19 17:53 - Physical Exam General Appearance: No: Apparent Distress HEENT: positive: Normal Voice, Pharynx Normal. negative: Muffled/Hoarse voice, Pharyngeal Erythema, Tonsillar Exudate, Tonsillar Erythema, Sinus Tenderness Respiratory/Chest: positive: Lungs Clear, Normal Breath Sounds. negative: Respiratory Distress Cardiovascular: positive: Regular Rhythm, Regular Rate, S1, S2. negative: Murmur Gastrointestinal/Abdominal: positive: Normal Bowel Sounds, Soft. negative: Tender, Distended, Guarding, Rebound Musculoskeletal: positive: Muscle Spasm (+L lumbar paraspinal tenderness). negative: CVA Tenderness, Vertebral Tenderness Integumentary: positive: Normal Color Neurologic: positive: Alert, Normal Mood/Affect ED Treatment Course - Medications Given in the ED: ED Medications Discontinued Medications Generic Name Dose Route Start Last Admin Trade Name Freq PRN Reason Stop Dose Admin Diazepam 5 mg 03/30/19 18:33 03/30/19 18:48 Valium - PO 03/30/19 18:34 5 mg ONCE ONE Administration Ketorolac Tromethamine 60 mg 03/30/19 18:33 03/30/19 18:48 Toradol Injection - IM 03/30/19 18:34 60 mg ONCE ONE Administration Lidocaine 1 patch 03/30/19 18:33 03/30/19 18:48 Lidoderm Patch - TP 03/30/19 18:34 1 patch ONCE ONE Administration Medical Decision Making - Medical Decision Making 33 y/o F with hx of lumbar herniated disc presents with nonradiating LBP x 1.5 weeks. Has tried Motrin 400 mg, Flexeril BID x 2 days and Robaxin 500 mg BID yesterday without much relief of pain. Mentions having injured her lower back last year, having MRI of L spine, which showed herniated disc. Denies recent trauma. LBP is worse with movement of spine. Patient also recently returned from [place] 4 days ago. Also c/o throat discomfort and slight congestion. Denies fever, cough, ear pain, sob, cp, abd pain, n/v, urinary complaints, numbness/tingling/weakness of extremities, bowel/bladder incontinence. LBP likely muscular in nature - given Tordaol, Valium and Lidocaine patch; patient has neurologist she can follow-up with Throat discomfort - no sign of strep, likely starting with viral URI as well 03/30/19 19:14 *DC/Admit/Observation/Transfer Diagnosis at time of Disposition: Back spasm, Viral URI - Discharge Dispostion Disposition: HOME Condition at time of disposition: Stable Decision to Admit order: No - Prescriptions Prescriptions: Diazepam [Valium] 5 mg PO Q8H PRN #15 tablet MDD 3 PRN Reason: Muscle Spasms Lidocaine 5% Patch [Lidoderm -] 1 patch TP DAILY #7 patch - Referrals - Patient Instructions Printed Discharge Instructions: DI for Low Back Pain, DI for Viral Upper Respiratory Infection -- Adult Additional Instructions: Thank you for choosing [facility]. It was a pleasure taking care of you. You may take Motrin 600 mg every 6 hours by mouth as needed for mild to moderate pain. Take Motrin with food. Take Valium as needed for muscle spasms. This medication can also make you drowsy so please be cautious with driving or performing heavy physical work. Apply warm compresses Apply lidocaine patch for 12 hours, then keep off for 12 hours Follow-up with your neurologist Return to the Emergency Department if your symptoms worsen or persist or have other concerning symptoms. - Post Discharge Activity
== END 2019-03-30 19:28 | disposition home or self-care (01) ==
LOC: JERFT 17:51
PROC: 3E0233Z Introduction of Anti-inflammatory into Muscle, Percutaneous Approach (ICD-10-PCS; principal; 2019-03-30)
DX: M62.830 Muscle spasm of back (principal); J06.9 Acute upper respiratory infection, unspecified; B97.89 Other viral agents as the cause of diseases classified elsewhere
CPT/HCPCS: 99282-25

== ENCOUNTER 2019-07-12 14:34 | Emergency (ER) | payer OTHER ==
[2019-07-12 14:52] VITALS: TEMP 97.8; BMI 27.1
--- NOTE | 2019-07-12 14:54 | PDOC ---
Rapid Medical Evaluation Time Seen by Provider: 07/12/19 14:50 Medical Evaluation: Allergies Allergy/AdvReac Type Severity Reaction Status Date / Time shellfish derived Allergy Unknown Verified 03/30/19 17:53 07/12/19 14:50 Pt presents for L lower abdominal pain and lower back pain. She states the pain started approximately on week ago and now radiates to her back. Exam: TTP of the LL abdomen. Orders: urine Pt to proceed to the ER for further evaluation Discharge Disposition - Diagnosis Abdominal pain - Referrals - Patient Instructions - Post Discharge Activity
--- NOTE | 2019-07-12 18:52 | PDOC ---
History of Present Illness - General Chief Complaint: Pain, Acute Stated Complaint: PAIN Time Seen by Provider: 07/12/19 14:50 History Source: Patient Exam Limitations: No Limitations - History of Present Illness Travel History: No Initial Comments: 07/12/19 18:48 34-year-old female presents the ED with complaints of intermittent left suprapubic pain worsened with movement and urination. Patient states history of hysterectomy and states has had ovarian cyst in the past which she states her symptoms feel similar to cyst. Patient describes the pain as sharp and cramp like patient denies recent sexual intercourse. Patient states history of hysterectomy and states has had ovarian cyst in the past. Timing/Duration: reports: intermittent Quality: reports: mild, cramping, sharpness Abdominal Pain Onset Location: reports: suprapubic (Left) Pain Radiation: reports: other (Left lower back) Activities at Onset: reports: none Aggravating Factors: improves with: Movement (Mild) Alleviating Factors: improves with: Change in Position Past History - Travel Traveled outside of the country in the last 30 days: No Close contact w/someone who was outside of country & ill: No - Past Medical History Allergies/Adverse Reactions: Allergies Allergy/AdvReac Type Severity Reaction Status Date / Time shellfish derived Allergy Unknown Verified 07/12/19 14:52 Home Medications: Ambulatory Orders Oxycodone HCl/Acetaminophen [Percocet 5-325 mg Tablet] 1 - 2 tab PO Q6H PRN #12 tab MDD 4 07/12/19 Anemia: No Asthma: No Cancer: No Cardiac Disorders: No CVA: No COPD: No CHF: No DVT: No Dementia: No Diabetes: No GI Disorders: No Disorders: No HTN: No Hypercholesterolemia: No Liver Disease: No Seizures: No Thyroid Disease: No - Surgical History Abdominal Surgery: No Appendectomy: No Cardiac Surgery: No Cholecystectomy: No Lung Surgery: No Neurologic Surgery: No Orthopedic Surgery: No - Reproductive History Cervical CA: No Dysfunctional Uterine Bleeding: No Ectopic : No Endometrial CA: No Polycystic Ovaries: Yes Therapeutic (s) & number: No Tubal Ligation: No Uterine Fibroids: Yes (removed) - Immunization History Immunization Up to Date: Yes - Psycho Social/Smoking Cessation Hx Smoking Status: No Smoking History: Never smoked Have you smoked in the past 12 months: No Number of Cigarettes Smoked Daily: 0 Hx Alcohol Use: No Drug/Substance Use Hx: No Substance Use Type: None Hx Substance Use Treatment: No Patient Lives Alone: No Lives with/in: spouse/SO Review of Systems - Review of Systems Able to Perform ROS?: Yes Constitutional: No: Symptoms Reported HEENTM: No: Symptoms Reported Respiratory: No: Symptoms reported ABD/GI: Yes: Symptoms Reported, Abdominal cramping (Left suprapubic) : No: Symptoms Reported, Dysuria Musculoskeletal: No: Symptoms Reported Integumentary: No: Symptoms Reported Neurological: No: Symptoms reported Endocrine: No: Symptoms Reported Hematologic/Lymphatic: No: Symptoms Reported *Physical Exam - Vital Signs Last Vital Signs Temp Pulse Resp BP Pulse Ox 97.8 F 89 16 127/69 96 07/12/19 14:50 07/12/19 14:50 07/12/19 14:50 07/12/19 14:50 07/12/19 14:50 - Physical Exam General Appearance: Yes: Nourished, Appropriately Dressed. No: Apparent Distress HEENT: negative: Pale Conjunctivae Respiratory/Chest: positive: Lungs Clear, Normal Breath Sounds. negative: Respiratory Distress, Accessory Muscle Use Cardiovascular: positive: Regular Rhythm, Regular Rate. negative: Murmur Female Pelvic Exam: positive: adnexal tenderness (Left). negative: discharge, vaginal bleeding Gastrointestinal/Abdominal: positive: Normal Bowel Sounds, Soft, Tenderness ( Left suprapubic) Musculoskeletal: negative: CVA Tenderness Integumentary: positive: Normal Color, Warm, Moist Neurologic: positive: Motor Strength 5/5 (Ambulatory) ED Treatment Course - RADIOLOGY Radiology Studies Ordered: Category Date Time Status TRANSVAGINAL ULTRASOUND US [US] Stat Ultrasound 07/12/19 16:49 Completed - Medications Given in the ED: ED Medications Discontinued Medications Generic Name Dose Route Start Last Admin Trade Name Freq PRN Reason Stop Dose Admin Oxycodone/Acetaminophen 1 combo 07/12/19 16:50 07/12/19 17:00 Percocet 5/325 - PO 07/12/19 16:51 1 combo ONCE ONE Administration Medical Decision Making - Medical Decision Making 07/12/19 17:54 chief complaint: Patient with left suprapubic pain worsened over the past few days aggravated with movement and intimately with urination. Patient with history of partial hysterectomy secondary to endometriosis along with history of ovarian cyst. Exam: Patient left suprapubic and left adnexal tenderness no discharge vital signs stable. Plan: Urinalysis urine culture transvaginal ultrasound ordered 07/12/19 18:55 Ultrasound shows bilateral prominent follicles largest measuring 1.3 cm no free fluid no abnormal findings otherwise. Called the lab and unable to retrieve urine. We will send repeat urinalysis urine culture and call patient if positive for UTI. Otherwise patient will be discharged home with Percocet with recommendations to follow-up with APARTMENT PROPERTY MANAGER. + resolution of pain Discharge - Discharge Information Problems reviewed: Yes Clinical Impression/Diagnosis: Abdominal pain, Ovarian cyst Condition: Improved Disposition: HOME - Follow up/Referral Referrals: Frankie Garces MD [Primary Care Provider] - - Patient Discharge Instructions Patient Printed Discharge Instructions: DI for Ovarian Cyst Additional Instructions: Please follow-up with your APARTMENT PROPERTY MANAGER. Please take Percocet as needed for pain but do not operate any heavy machinery while taking this. You may also try putting a heating pad to the affected area to alleviate discomfort. - Post Discharge Activity
[2019-07-12 18:58] LABS: PH,URINE 6.5 (5.0-8.0); URINE APPEARANCE CLEAR; URINE BILIRUBIN NEGATIVE (NEGATIVE); URINE COLOR YELLOW; URINE GLUCOSE (UA) NEGATIVE (NEGATIVE); URINE KETONE NEGATIVE (NEGATIVE); URINE LEUK ESTERASE NEGATIVE (NEGATIVE); URINE NITRITE NEGATIVE (NEGATIVE); URINE PROTEIN NEGATIVE (NEGATIVE); URINE UROBILINOGEN 0.2 mg/dL (0.2-1.0)
[2019-07-12 19:03] VITALS: BP 116/66; PULSE 86
[2019-07-12 19:25] LABS: PH,URINE 6.5 (5.0-8.0); URINE APPEARANCE CLEAR; URINE BILIRUBIN NEGATIVE (NEGATIVE); URINE COLOR YELLOW; URINE GLUCOSE (UA) NEGATIVE (NEGATIVE); URINE KETONE NEGATIVE (NEGATIVE); URINE LEUK ESTERASE NEGATIVE (NEGATIVE); URINE NITRITE NEGATIVE (NEGATIVE); URINE PROTEIN NEGATIVE (NEGATIVE)
== END 2019-07-12 19:10 | disposition home or self-care (01) ==
LOC: JER 14:34
DX: N83.202 Unspecified ovarian cyst, left side (principal); N83.201 Unspecified ovarian cyst, right side; Z90.710 Acquired absence of both cervix and uterus
CPT/HCPCS: 76830-TC; 81003; 84703; 87077; 87086; 99282-25

== ENCOUNTER 2019-08-09 08:23 | Emergency (ER) | payer OTHER ==
[2019-08-09 08:28] VITALS: BP 126/75; PULSE 69; TEMP 98.3; BMI 28.8
[2019-08-09] MEDS ORDERED: diazePAM 5 MG TABLET PO ONE (08:48)
[2019-08-09] MEDS ORDERED: KETOROLAC TROMETHAMINE 30 MG/1 ML VIAL IM ONE (08:49)
[2019-08-09] MEDS ORDERED: KETOROLAC TROMETHAMINE 30 MG/1 ML VIAL ONE (08:50)
[2019-08-09] MEDS ORDERED: diazePAM 5 MG TABLET ONE (08:50)
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
== END 2019-08-09 10:31 | disposition home or self-care (01) ==
LOC: JERFT 08:23
PROC: 3E0233Z Introduction of Anti-inflammatory into Muscle, Percutaneous Approach (ICD-10-PCS; principal; 2019-08-09)
DX: M54.5 Low back pain (principal); R07.81 Pleurodynia; V43.52XA Car driver injured in collision with other type car in traffic accident, initial encounter; Y92.412 Parkway as the place of occurrence of the external cause; Y93.89 Activity, other specified; Y99.8 Other external cause status; Z91.013 Allergy to seafood; Z90.710 Acquired absence of both cervix and uterus
CPT/HCPCS: 71046-TC-FY; 71101-TC-RT-FY; 72100-TC-FY; 99282-25

== ENCOUNTER 2019-09-19 19:35 | Emergency (ER) | payer OTHER ==
[2019-09-19 20:12] VITALS: BP 125/67; PULSE 92; TEMP 97.8; BMI 28.8
[2019-09-19] MEDS ORDERED: ACETAMINOPHEN 325 MG TABLET (FP) PO ONE (22:09)
--- NOTE | 2019-09-19 22:16 | PDOC ---
History of Present Illness - General Chief Complaint: Pain Stated Complaint: ABD PAIN History Source: Patient, Old Records Exam Limitations: No Limitations - History of Present Illness Initial Comments: HPI: 34 y/o female presenting to [facility] ER complaining of three episodes of left sided pelvic pain at approx. 4pm this afternoon. Described as sharp with some radiation to left flank, but nonmigratory. Each episode lasted approx. 1 min before resolving. Attempted relief with Ibuprofen. Has noticed increased urinary frequency for the past few days. Denies associated fever, chills, vomiting, diarrhea, hematochezia, hematuria, or dysuria. H/o similar pain with ovarian cyst noted on TVUS 12 Jul 2019. Evaluated by SALVAGE LABORER who recommended following the size. Also complaining of bifrontal headache and nonproductive cough for the past few hours. Reports diffuse chest tightness while coughing. No radiation to arms, neck, back, or abdomen. 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 Medical Hx: - H/o bilateral ovarian cysts Surgical Hx: - S/p hysterectomy 9 years ago Review of Systems: In addition to that documented in the HPI above, the additional ROS was obtained : Constitutional- Denies fevers or chills Head- Denies vision changes ENMT- Denies sore throat CV- Denies chest pain Resp- Per HPI GI- Denies vomiting or diarrhea - Denies painful urination MSK- Denies recent trauma Skin- Denies new rashes Neuro- Denies new numbness or tingling or weakness Endocrine- Denies polyuria Heme- Denies bleeding or bruising Physical Examination: Vital signs and nursing notes reviewed. Constitutional- Nontoxic, well-developed, well-nourished adult female in no acute distress or obvious discomfort. Found semi-fowlers on hospital stretcher. Answered all questions appropriately and completely. Head- Normocephalic. No obvious external signs of trauma. Eyes- Sclerae white. Neck- Supple, trachea is midline. Cardiovascular / Chest- Regular rate and regular rhythm. No murmur, rubs, clicks , or gallops. Peripheral pulses- radial pulses full. Respiratory- Occasional, shallow cough during interview. Breathing unlabored. Speaking in complete sentences without pausing. Equal chest rise and fall. Clear to auscultation bilaterally. No stridor, no wheezing, no rhonchi. Gastrointestinal- abdomen is tender in LLQ vs left pelvic with guarding but no rebound or involuntary withdrawal. Globally, abdomen is soft and non-distended. No hepatosplenomegaly. No pulsatile masses. No overlying skin lesions or obvious signs of trauma. Able to transition from supine to fowlers without obvious difficulty. Neuro- Alert and oriented x4. Moving all four extremities spontaneously. Gait normal. Skin- Warm, dry, and intact. Psych- Affect- appropriate. Mood- normal. Speech was non-labored, non- pressured. MDM: 34 y/o female presenting with resolved left pelvic pain, as well as likely unrelated headache and nonproductive cough. Afebrile. Vitals unremarkable for hypotension or tachycardia. Physical exam as described above. Suspect pelvic pain likely secondary to known ovarian cysts. Will obtain TVUS to eval for torsion or significant change in size. Ordered Tylenol for headache. Suspect cough is mild URI. Low suspicion for PNA. Noted UA unremarkable for pyuria, nitrites, or leukocyte esterase. Low suspicion for acute cystitis. No blood in sample. Low suspicion for nephrolithiasis. Pt has experienced this pain before. UPreg negative. Pt continues to complain of headache. States Tylenol never works for me; I don t even give it to my kids. Ordered Toradol injection. 20 Sep 2019 00:23 AM Pt signed out to resident Dr. Chang after he was verbally appraised of the pts HPI, current ED course, and plan of management. Will f/u pending TVUS. Anticipate dispo home with SALVAGE [employer]ER f/u. Petar Gonzalez M.D., PGY2 Emergency Medicine Resident Past History - Past Medical History Allergies/Adverse Reactions: Allergies Allergy/AdvReac Type Severity Reaction Status Date / Time shellfish derived Allergy Unknown Verified 09/19/19 20:09 Home Medications: Ambulatory Orders Cyclobenzaprine HCl [Flexeril -] 5 mg PO TID #21 tablet 08/09/19 Ibuprofen 600 mg PO TID #30 tablet 08/09/19 Naproxen [Naprosyn -] 500 mg PO BID #28 tablet 08/09/19 Anemia: No Asthma: No Cancer: No Cardiac Disorders: No CVA: No COPD: No CHF: No DVT: No Dementia: No Diabetes: No GI Disorders: No Disorders: No HTN: No Hypercholesterolemia: No Liver Disease: No Seizures: No Thyroid Disease: No - Surgical History Abdominal Surgery: No Appendectomy: No Cardiac Surgery: No Cholecystectomy: No Lung Surgery: No Neurologic Surgery: No Orthopedic Surgery: No - Reproductive History Cervical CA: No Dysfunctional Uterine Bleeding: No Ectopic : No Endometrial CA: No Polycystic Ovaries: Yes Therapeutic (s) & number: No Tubal Ligation: No Uterine Fibroids: Yes (removed) - Immunization History Immunization Up to Date: Yes - Psycho Social/Smoking Cessation Hx Smoking Status: No Smoking History: Never smoked Have you smoked in the past 12 months: No Number of Cigarettes Smoked Daily: 0 Hx Alcohol Use: No Drug/Substance Use Hx: No Substance Use Type: None Hx Substance Use Treatment: No *Physical Exam - Vital Signs Last Vital Signs Temp Pulse Resp BP Pulse Ox 97.8 F 92 H 18 125/67 100 09/19/19 20:09 09/19/19 20:09 09/19/19 20:09 09/19/19 20:09 09/19/19 20:09 ED Treatment Course - RADIOLOGY Radiology Studies Ordered: Category Date Time Status TRANSVAGINAL ULTRASOUND US [US] Stat Ultrasound 09/19/19 22:10 Ordered Discharge - Discharge Information Problems reviewed: Yes Clinical Impression/Diagnosis: Pelvic pain Condition: Stable - Follow up/Referral Referrals: Frankie Garces MD [Primary Care Provider] - - Patient Discharge Instructions - Post Discharge Activity
[2019-09-19] MEDS ORDERED: ACETAMINOPHEN 325 MG TABLET (FP) ONE (22:29)
[2019-09-19 23:02] LABS: URINE APPEARANCE CLEAR; URINE BILIRUBIN NEGATIVE (NEGATIVE); URINE COLOR YELLOW; URINE GLUCOSE (UA) NEGATIVE (NEGATIVE); URINE KETONE NEGATIVE (NEGATIVE); URINE LEUK ESTERASE NEGATIVE (NEGATIVE); URINE NITRITE NEGATIVE (NEGATIVE); URINE PROTEIN NEGATIVE (NEGATIVE); URINE UROBILINOGEN 0.2 mg/dL (0.2-1.0)
--- NOTE | 2019-09-19 23:34 | PDOC ---
Documentation entered by Ofe Caballero SCRIBE, acting as scribe for Hina Armando MD. Hina Armando MD: This documentation has been prepared by the jacquiibe, Ofe Caballero SCRIBE, under my direction and personally reviewed by me in its entirety. I confirm that the documentation accurately reflects all work, treatment, procedures, and medical decision making performed by me. Attending Attestation - Resident Resident Name: Petar Gonzalez - ED Attending Attestation I have performed the following: I have examined & evaluated the patient, The case was reviewed & discussed with the resident, I agree w/resident's findings & plan, Exceptions are as noted - HPI HPI: 09/19/19 23:30 34-year-old female presents with left pelvic pain that started this evening,She also states that she has some nasal congestion that just started along with a cough and headache and body aches Past medical history partial hysterectomy and ovarian cysts 09/20/19 00:34 - Physicial Exam PE: 09/19/19 23:34 tall 34 yo female p/e left sided pelvis pain head ncat neck supple lungs cta b/l cvs [id number] abd nontender left pelvic pain skin warm and dry neuro axox3,ambulatory - Medical Decision Making 09/19/19 23:34 Plan transvaginal ultrasound, UA 09/20/19 00:24 Pelvic ultrasound findings post hysterectomy, no abnormalities of the hysterectomy bed Right ovary could not be visualized Left ovary is normal size measuring 2.7 cm x 2.2 cm x 1.9 cm There is a positive Doppler blood flow to the left ovary There is moderate amount of free fluid in the left adnexal region. This conceivably could be due to a ruptured left adnexal cyst 09/20/19 00:38 imp ruptured adnexal cyst / Spoke to the patient and she has nasal congestion and some coughing and body aches No fever, lungs are clear, pulse ox 99% on room air NSAIDs/follow up with capacity planning engineer
[2019-09-19] MEDS ORDERED: KETOROLAC TROMETHAMINE 30 MG/1 ML VIAL IM ONE (23:43)
--- NOTE | 2019-09-19 23:45 | PDOC ---
*Physical Exam - Vital Signs Last Vital Signs Temp Pulse Resp BP Pulse Ox 97.8 F 92 H 18 125/67 100 09/19/19 20:09 09/19/19 20:09 09/19/19 20:09 09/19/19 20:09 09/19/19 20:09 ED Treatment Course - ADDITIONAL ORDERS Additional order review: Laboratory Results 09/19/19 09/19/19 21:30 21:30 Urine Color Yellow Urine Appearance Clear Urine pH 6.0 Ur Specific [place] 1.033 Urine Protein Negative Urine Glucose (UA) Negative Urine Ketones Negative Urine Blood Negative Urine Nitrite Negative Urine Bilirubin Negative Urine Urobilinogen 0.2 Ur Leukocyte Esterase Negative Urine HCG, Qual Negative - Medications Given in the ED: ED Medications Discontinued Medications Generic Name Dose Route Start Last Admin Trade Name Navdeep PRN Reason Stop Dose Admin Acetaminophen 650 mg 09/19/19 22:09 09/19/19 22:38 Tylenol - PO 09/19/19 22:10 650 mg ONCE ONE Administration Medical Decision Making - Medical Decision Making 09/19/19 23:43 Pt received on sign out from Dr. Gonzalez. 34 y/o female s/p partial hysterectomy complaining of LLQ pelvic pain. Hx of similar. Known ovarian cysts. Reports bifrontal headache and non productive cough with associated chest tightness when coughing. F/u TVUS to r/o torsion. Given Toradol shot. 09/20/19 00:22 TVUS shows positive blood flow to the left ovary and no signs of torsion. Pt still complaining of headache. Will give toradol 60mg IM. 09/20/19 01:52 Pt reassessed. Reports feeling better and that she is ready to go home. Plan to d/c with OBGYN f/u as needed. All questions answered. Return precautions given. Pt verbalized understanding and agreement with plan. Discharge - Discharge Information Problems reviewed: Yes Clinical Impression/Diagnosis: Pelvic pain Condition: Stable Disposition: HOME - Admission No - Follow up/Referral Referrals: Frankie Garces MD [Primary Care Provider] - Jose Siegel MD [Staff Physician] - - Patient Discharge Instructions Patient Printed Discharge Instructions: DI for Pelvic Pain Additional Instructions: Please take Tylenol and Motrin as needed for your pain (follow instructions on the package). Please make a follow up appointment with an OBGYN if your pain persists ( referral provided here). If you experience any new, worsening, or concerning symptoms, including severe pelvic pain, abdominal pain, vaginal bleeding, dizziness, or any other concerns , please return to the emergency department. - Post Discharge Activity
[2019-09-20] MEDS ORDERED: KETOROLAC TROMETHAMINE 60 MG/2 ML VIAL IM ONE (00:29)
[2019-09-20] MEDS ORDERED: KETOROLAC TROMETHAMINE 60 MG/2 ML VIAL ONE (00:49)
== END 2019-09-20 01:54 | disposition home or self-care (01) ==
LOC: JER 19:35
PROC: 3E0233Z Introduction of Anti-inflammatory into Muscle, Percutaneous Approach (ICD-10-PCS; principal; 2019-09-19)
DX: N83.202 Unspecified ovarian cyst, left side (principal); J06.9 Acute upper respiratory infection, unspecified; Z91.013 Allergy to seafood
CPT/HCPCS: 76830-TC; 81003; 84703; 87086; 99283-25